=== PATIENT | male | born 1955 | race Caucasian/White ===

== ENCOUNTER 2018-06-10 10:52 | Emergency (ER) | payer MEDICARE ==
[~2018-06-10] VITALS: Ht 160 cm; Wt 77.3 kg
[~2018-06-10 10:52] MED LIST: BAYER CHEWABLE81 MG PO; CYCLOBENZAPRINE10 MG PO; GLUCOPHAGE1000 MG PO; KEFLEX500 MG PO; PLAVIX75 MG PO; PRILOSEC20 MG PO
[2018-06-10 10:57] VITALS: Ht 160 cm; Wt 77.3 kg
[2018-06-10] MEDS ORDERED: ACETAMINOPHEN500 M1 PO (10:59)
[2018-06-10] MEDS ORDERED: NORCO 10-325 TA1 TAB PO (12:29)
[2018-06-10 13:12] VITALS: BP 154/82
== END 2018-06-10 13:00 | disposition home or self-care (01) ==
LOC: D.ER 10:52
DX: S16.1XXA Strain of muscle, fascia and tendon at neck level, initial encounter (principal); V43.52XA Car driver injured in collision with other type car in traffic accident, initial encounter; Y93.89 Activity, other specified; Y92.410 Unspecified street and highway as the place of occurrence of the external cause; S39.012A Strain of muscle, fascia and tendon of lower back, initial encounter; F17.200 Nicotine dependence, unspecified, uncomplicated